=== PATIENT | female | born 1965 | race Hispanic/Latino ===

== ENCOUNTER 2017-12-17 16:00 | Observation (INO) | payer BC, SELFPAY ==
[2017-12-17 17:13] LABS: Absolute Lymphocytes (CBC) 2.2 K/uL (0.7-4.9); Absolute Monocytes 0.5 K/uL (0.1-1.3); Absolute Neutrophil 5.2 K/uL (1.8-8.0); Basophils % 0.9 % (0-1.3); Eosinophils % 1.3 % (0-4.4); MCV 94.6 fL (80-100); MPV 8.5 fL (7.6-11.3); Monocytes % 6.2 % (3.3-12.3); RBC Red Blood Cell Count 4.23 M/uL (3.86-4.86)
--- NOTE | 2017-12-17 17:18 | RAD REPORT ---
EXAM DESCRIPTION: CT - Head Brain Wo Cont - 12/17/2017 5:00 pm CLINICAL HISTORY: Dizziness and confusion COMPARISON: None. TECHNIQUE: Computed axial tomography of the head was obtained. IV contrast was not requested. All CT scans are performed using dose optimization technique as appropriate and may include automated exposure control or mA/KV adjustment according to patient size. FINDINGS: An intracranial bleed is not seen . The ventricles are normal in caliber. No extra-axial fluid collection is noted. Fluid within the sinuses/ mastoids is not seen. IMPRESSION: No acute intracranial abnormality is seen. If patient's symptoms persist MRI of the bra in would be recommended.
[2017-12-17 17:20] LABS: Protime INR 1.03
[2017-12-17] MEDS ORDERED: ACETAMINOPHEN 500 MG TAB ONE (17:24)
[2017-12-17 17:34] LABS: ALT/SGPT 40 U/L (12-78); AST/SGOT 24 U/L (15-37); Albumin 3.9 g/dL (3.4-5.0); Alkaline Phosphatase 90 U/L (45-117); BUN Blood Urea Nitrogen 14 mg/dL (7-18); Bicarbonate 23 mmol/L (21-32); Bilirubin Direct 0.1 mg/dL (0-0.2); Bilirubin Total 0.5 mg/dL (0.2-1.0); Glucose Level 94 mg/dL (74-106); NT PRO-BNP 28 pg/mL (<125); Potassium 3.6 mmol/L (3.5-5.1); Protein, Total 7.7 g/dL (6.4-8.2); Sodium Level 141 mmol/L (136-145); Troponin (Emerg Dept Use Only) < 0.02 ng/mL (0.0-0.045)
[2017-12-17 17:43] LABS: Thyroid Stimulating Hormone 0.406 uIU/mL (0.360-3.740)
--- NOTE | 2017-12-17 17:47 | ER ---
Nurse's Notes [facility] Name: Yaz Dunham Age: 52 yrs Sex: Female : 1965 Arrival Date: 12/17/2017 Time: 16:02 Bed 8 Private MD: Diagnosis: Altered mental status, unspecified;Chest pain, unspecified Presentation: 12/17 16:05 Presenting complaint: EMS states: Chestpain that began around 1530 today, became weak sg and felt faint and the pt son was able to help her sit down on the ground. pt family reports having blank stare and confused for EMS. EMS reports that when the pt arrived to the facility she reported " hey, where am I.". Transition of care: patient was not received from another setting of care. Onset of symptoms was December 17, 2017. Risk Assessment: Do you want to hurt yourself or someone else? Patient reports no desire to harm self or others. Initial Sepsis Screen: Does the patient meet any 2 criteria? No. Patient's initial sepsis screen is negative. Does the patient have a suspected source of infection? No. Patient's initial sepsis screen is negative. Care prior to arrival: Medication(s) given: ASA, 81 mg, x 4, Nitroglycerin, 0.4 mg SL x 1. 16:05 Method Of Arrival: EMS: [facility] sg 16:05 Acuity: DONATO 3 sg Historical: - Allergies: 16:15 No Known Allergies; sg - Home Meds: 16:05 trazodone 50 mg Oral tab [Active]; duloxetine oral oral [Active]; [place] Thyroid Oral sg [Active]; - PMHx: 16:15 Hypothyroidism; sg - Immunization history:: Adult Immunizations unknown. - Social history:: Smoking status: Patient/guardian denies using tobacco. - Ebola Screening: : Patient negative for fever greater than or equal to 101.5 degrees Fahrenheit, and additional compatible Ebola Virus Disease symptoms Patient denies exposure to infectious person Patient denies travel to an Ebola-affected area in the 21 days before illness onset No symptoms or risks identified at this time. Screenin:00 Abuse screen: Denies threats or abuse. Denies injuries from another. Nutritional sg screening: No deficits noted. Tuberculosis screening: No symptoms or risk factors identified. Never had TB. Fall Risk None identified. Assessment: 16:15 General: Appears in no apparent distress. comfortable, well groomed, well developed, sg well nourished, Behavior is calm, cooperative, appropriate for age. Pain: Denies pain. Neuro: Level of Consciousness is awake, alert, obeys commands, Oriented to person, place, time, situation, Fabrics And [employer] Cutter are equal bilaterally Moves all extremities. Full function Gait is steady, Speech is normal, Facial symmetry appears normal, Pupils are PERRLA. Cardiovascular: Capillary refill is brisk in bilateral fingers Patient's skin is warm and dry. 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 Respiratory: Airway is patent Respiratory effort is even, unlabored, Respiratory pattern is regular, symmetrical, Breath sounds are clear bilaterally. Denies cough, shortness of breath labored breathing, pain with respiration, pain with cough. GI: Abdomen is round non-distended, Bowel sounds present X 4 quads. Patient currently denies nausea, pain, vomiting. : No signs and/or symptoms were reported regarding the genitourinary system. EENT: No signs and/or symptoms were reported regarding the EENT system. Derm: Skin is pink, warm \\T\\ dry. Musculoskeletal: No signs and/or symptoms reported regarding the musculoskeletal system. 17:30 Reassessment: Patient appears in no apparent distress at this time. Patient and/or sg family updated on plan of care and expected duration. Pain level reassessed. Patient is alert, oriented x 3, equal unlabored respirations, skin warm/dry/pink. Patient states symptoms have not improved. 18:00 Reassessment: awaiting a bed for admission at this time, pt and pt family stated sg understanding. 18:20 Reassessment: Patient appears in no apparent distress at this time. Patient and/or sg family updated on plan of care and expected duration. Pain level reassessed. Patient is alert, oriented x 3, equal unlabored respirations, skin warm/dry/pink. reports headache has decreased in intensity at this time Patient states symptoms have not improved. 19:26 Reassessment: Patient is alert, oriented x 3, equal unlabored respirations, skin lp1 warm/dry/pink. Reassessment: Patient aware of pending admission. Pain: Complains of pain in head Pain does not radiate. Pain currently is 7 out of 10 on a pain scale. Quality of pain is described as aching, Pain began gradually. Neuro: Reports headache. Vital Signs: 16:05 BP 168 / 95; Pulse 67 MON; Resp 17 S; Temp 97.7; Pulse Ox 100% ; Pain 0/10; sg 19:27 BP 143 / 74; Pulse 54; Resp 13; Pulse Ox 100% on R/A; lp1 16:05 Sinus Rhythm sg ED Course: 16:02 Patient arrived in ED. sg 16:05 Arm band placed on. sg 16:06 Maverick Harris PA is PHCP. jr8 16:06 Ahsan Rajan MD is Attending Physician. jr8 16:11 Triage completed. sg 16:15 No provider procedures requiring assistance completed. Maintain EMS IV. Site clean \\T\\ sg dry. Gauge \\T\\ site: 20 G L hand. IV is patent, is intact. Patient maintains SpO2 saturation greater than 95% on room air. 16:27 EKG done, by ED staff, reviewed by Maverick QUICK. jb1 16:29 Shahriar Abbott RN is Primary Nurse. sg 16:59 CT completed. Patient moved to CT via wheelchair. Patient moved back from CT. bq 17:01 CT Head Brain wo Cont In Process Unspecified. EDMS 17:24 X-ray completed. Portable x-ray completed in exam room. Patient tolerated procedure ka well. 17:26 XRAY Chest (1 view) In Process Unspecified. EDMS 17:46 Manuel Gracia MD is Hospitalizing Provider. jr8 18:08 Inserted saline lock: 22 gauge in right antecubital area, using aseptic technique. IV iw discontinued, intact, bleeding controlled, No redness/swelling at site. Pressure dressing applied. 18:18 Basic Metabolic Panel Sent. eb 19:09 Patient has correct armband on for positive identification. manager er on. Pulse lp1 ox on. NIBP on. Administered Medications: 17:17 Drug: Tylenol 1000 mg Route: PO; iw Outcome: 17:46 Decision to Hospitalize by Provider. jr8 19:09 Condition: stable lp1 19:09 Instructed on the need for admit. 19:47 Admitted to Tele accompanied by tech, via wheelchair, room 402, with chart, Report lp1 called to BEATRIZ Dixon 20:16 Patient left the ED. lp1 Signatures: Dispatcher [employer] EDMS Diallo Curiel jb1 Shahriar Abbott RN RN sg Randa Patel Irene, RN RN iw Pena, Laura, RN RN lp1 Maverick Harris PA PA jr8 Juliet Ware Elizabeth eb Corrections: (The following items were deleted from the chart) 16:19 16:05 Care prior to arrival: None. juan luis mcknight
--- NOTE | 2017-12-17 17:47 | EDPHYS ---
Physician Documentation [facility] Name: Yaz Dunham Age: 52 yrs Sex: Female : 1965 Arrival Date: 12/17/2017 Time: 16:02 Bed 8 Private MD: ED Physician Ahsan Rajan HPI: 12/17 16:52 This 52 yrs old Female presents to ER via EMS with complaints of High Blood jr8 Pressure, Chest Pain > 30 y/o. 16:52 Patient stated that just after taking a shower she started to have chest pain, right jr8 arm pain, neck, pain. Stated that from that point on could not remember what happened. Came too in an ambulance confused. Family stated that patient was walking around confused saying her chest hurt. Patient could not recall anything else at the house other then initially having chest pain. Patient currently A\T\Ox4. Only complaint is headache now . 17:14 The patient has not experienced similar symptoms in the past. The patient has not jr8 recently seen a physician. Historical: - Allergies: 16:15 No Known Allergies; sg - Home Meds: 16:05 trazodone 50 mg Oral tab [Active]; duloxetine oral oral [Active]; [place] Thyroid Oral sg [Active]; - PMHx: 16:15 Hypothyroidism; sg - Immunization history:: Adult Immunizations unknown. - Social history:: Smoking status: Patient/guardian denies using tobacco. - Ebola Screening: : Patient negative for fever greater than or equal to 101.5 degrees Fahrenheit, and additional compatible Ebola Virus Disease symptoms Patient denies exposure to infectious person Patient denies travel to an Ebola-affected area in the 21 days before illness onset No symptoms or risks identified at this time. ROS: 17:14 Eyes: Negative for injury, pain, redness, and discharge, ENT: Negative for injury, jr8 pain, and discharge, Neck: Negative for injury, pain, and swelling, Respiratory: Negative for shortness of breath, cough, wheezing, and pleuritic chest pain, Abdomen/GI: Negative for abdominal pain, nausea, vomiting, diarrhea, and constipation, Back: Negative for injury and pain, MS/Extremity: Negative for injury and deformity, Skin: Negative for injury, rash, and discoloration. 17:14 Cardiovascular: Positive for chest pain, palpitations, Negative for edema, orthopnea. 17:14 Neuro: Positive for altered mental status, headache. Exam: 17:14 Eyes: Pupils equal round and reactive to light, extra-ocular motions intact. Lids and jr8 lashes normal. Conjunctiva and sclera are non-icteric and not injected. Cornea within normal limits. Periorbital areas with no swelling, redness, or edema. ENT: Nares patent. No nasal discharge, no septal abnormalities noted. Tympanic membranes are normal and external auditory canals are clear. Oropharynx with no redness, swelling, or masses, exudates, or evidence of obstruction, uvula midline. Mucous membranes moist. Neck: Trachea midline, no thyromegaly or masses palpated, and no cervical lymphadenopathy. Supple, full range of motion without nuchal rigidity, or vertebral point tenderness. No Meningismus. Cardiovascular: Regular rate and rhythm with a normal S1 and S2. No gallops, murmurs, or rubs. Normal PMI, no JVD. No pulse deficits. Respiratory: Lungs have equal breath sounds bilaterally, clear to auscultation and percussion. No rales, rhonchi or wheezes noted. No increased work of breathing, no retractions or nasal flaring. Abdomen/GI: Soft, non-tender, with normal bowel sounds. No distension or tympany. No guarding or rebound. No evidence of tenderness throughout. Back: No spinal tenderness. No costovertebral tenderness. Full range of motion. Skin: Warm, dry with normal turgor. Normal color with no rashes, no lesions, and no evidence of cellulitis. MS/ Extremity: Pulses equal, no cyanosis. Neurovascular intact. Full, normal range of motion. Neuro: Awake and alert, GCS 15, oriented to person, place, time, and situation. Cranial nerves II-XII grossly intact. Motor strength 5/5 in all extremities. Sensory grossly intact. Cerebellar exam normal. Normal gait. Vital Signs: 16:05 BP 168 / 95; Pulse 67 MON; Resp 17 S; Temp 97.7; Pulse Ox 100% ; Pain 0/10; sg 19:27 BP 143 / 74; Pulse 54; Resp 13; Pulse Ox 100% on R/A; lp1 16:05 Sinus Rhythm MDM: 16:06 Patient medically screened. [facility] 17:45 Data reviewed: vital signs, nurses notes, lab test result(s), EKG, radiologic studies, [facility] CT scan, plain films. Data interpreted: Pulse oximetry: on room air is 100 %. Interpretation: normal. Counseling: I had a detailed discussion with the patient and/or guardian regarding: the historical points, exam findings, and any diagnostic results supporting the discharge/admit diagnosis, lab results, radiology results, the need for further work-up and treatment in the hospital. Physician consultation: Manuel Gracia MD was called at 17:45, was contacted at 17:45, regarding admission, to the telemetry unit. consult, patient's condition, and will see patient. 12/17 16:27 Order name: Basic Metabolic Panel 12/17 16:27 Order name: CBC with Diff; Complete Time: 17:41 12/17 16:27 Order name: LFT's; Complete Time: 17: 12/17 16:27 Order name: Magnesium; Complete Time: 17:41 12/17 16:27 Order name: NT PRO-BNP; Complete Time: 17:41 12/17 16:27 Order name: PT-INR; Complete Time: 17:41 12/17 16:27 Order name: Troponin (emerg Dept Use Only); Complete Time: 17:41 12/17 16:27 Order name: XRAY Chest (1 view); Complete Time: 16:01 12/17 16:27 Order name: EKG; Complete Time: 16:27 12/17 16:27 Order name: Basic Metabolic Panel; Complete Time: 17:41 [facility] 12/17 16:47 Order name: TSH; Complete Time: 17:45 12/17 16:47 Order name: T4 Free; Complete Time: 17:45 12/17 16:47 Order name: CT Head Brain wo Cont; Complete Time: 17:41 12/17 16:27 Order name: Cardiac monitoring; Complete Time: 16:27 12/17 16:27 Order name: EKG - Nurse/Tech; Complete Time: 16:27 12/17 16:27 Order name: IV Saline Lock; Complete Time: 16:48 12/17 16:27 Order name: Labs collected and sent; Complete Time: 16:48 12/17 16:27 Order name: O2 Per Protocol; Complete Time: 16:27 jr8 12/17 16:27 Order name: O2 Sat Monitoring; Complete Time: 16:27 8 Administered Medications: 17:17 Drug: Tylenol 1000 mg Route: PO; Disposition: 12/18 11:50 Co-signature as Attending Physician, Ahsan Rajan MD. Disposition: 12/17/17 17:46 Hospitalization ordered by Manuel Gracia for Observation. Preliminary diagnosis are Altered mental status, unspecified, Chest pain, unspecified. - Bed requested for Telemetry/MedSurg (observation). - Status is Observation. lp1 - Condition is Stable. - Problem is new. - Symptoms have improved. UTI on Admission? No Signatures: Dispatcher [employer] Germania Carrizales RN BEATRIZ Shahriar Abbott, RN BEATRIZ Sandrine Velazquez RN RN Jenna Turcios RN RN lp1 Maverick Harris, PA PA [facility] Ahsan Rajan MD MD Corrections: (The following items were deleted from the chart) 12/17 17:40 16:52 . jr8 jr8 18:51 17:46 Hospitalization Ordered by Manuel Gracia MD for Observation. Preliminary dw diagnosis is Altered mental status, unspecified; Chest pain, unspecified. Bed requested for Telemetry/MedSurg (observation). Status is Observation. Condition is Stable. Problem is new. Symptoms have improved. UTI on Admission? No. jr8 20:16 18:51 12/17/2017 17:46 Hospitalization Ordered by Manuel Gracia MD for Observation. lp1 Preliminary diagnosis is Altered mental status, unspecified; Chest pain, unspecified. Bed requested for Telemetry/MedSurg (observation). Status is Observation. Condition is Stable. Problem is new. Symptoms have improved. UTI on Admission? No. dw
[2017-12-17] MEDS ORDERED: ACETAMINOPHEN 500 MG TAB PO PRN (18:23)
[2017-12-17] MEDS ORDERED: ALPRAZOLAM 0.25 MG TABLET PO PRN (18:23)
--- NOTE | 2017-12-17 18:34 | RAD REPORT ---
EXAM DESCRIPTION: Marlo Single View12/17/2017 5:26 pm CLINICAL HISTORY: Chest pain COMPARISON: none FINDINGS: The lungs appear clear of acute infiltrate. The heart is normal size IMPRESSION: No acute abnormalities displayed
[2017-12-17] MEDS ORDERED: ALPRAZOLAM 0.25 MG TABLET ONE (19:52)
[2017-12-17] MEDS: ENOXAPARIN 40 MG/0.4 ML SQ SCH (20:00)
--- NOTE | 2017-12-18 07:25 | P.HP ---
Certification for Inpatient Patient admitted to: Observation With expected LOS: <2 Midnights Patient will require the following post-hospital care: None Practitioner: I am a practitioner with admitting privileges, knowledge of patient current condition, hospital course, and medical plan of care. Services: Services provided to patient in accordance with Admission requirements found in Title 42 Section 412.3 of the Code of Federal Regulations Patient History Date of Service: 12/17/17 Reason for admission: Syncopal event/chest pain rule out acute coronary syndrome History of Present Illness: Patient is a 52-year-old female came to the hospital after passing out. She was at home with her son and suddenly felt some chest tightness. She called out to her son who was playing video games near her. He apparently caught her and laid her down on the floor. She was unresponsive. EMS came out to the house and they assessed her. She finally started coming around while she was in the ambulance. She said by the time she got into the ER she started feeling more like herself. She still having some chest discomfort. She denies having heart problems. She was told by her neurologist that she was having some spinal cord issues and may need further evaluation. She is feeling much better. Her initial troponins and EKG did not reveal any abnormalities. She came into the hospital for further evaluation. Allergies No Known Allergies Allergy (Unverified 12/17/17 19:36) Home Medications: Atorvastatin Calcium 20 mg PO DAILY 12/17/17 Duloxetine [Cymbalta *] 30 mg PO DAILY 12/17/17 Copen-3 Fatty Acids/Fish Oil [Fish Oil 1,000 mg Capsule] 1 each PO DAILY Thyroid,Pork [[place] Thyroid] 3 tab PO DAILY 12/17/17 Trazodone HCl 50 mg PO BEDTIME 12/17/17 Zolpidem Tartrate 10 mg PO BEDTIME 12/17/17 - Past Medical/Surgical History Has patient received pneumonia vaccine in the past: No -: hypothyroidism -: chronic back pain -: bbl - Family History Father Family History: Reviewed- Non-Contributory - Social History Smoking Status: Never smoker Alcohol use: No CD- Drugs: No Place of Residence: Home Review of Systems 10-point ROS is otherwise unremarkable Physical Examination - Vital Signs Temperature: 98.8 F Blood Pressure: 102/58 Pulse: 58 Respirations: 18 Pulse Ox (%): 96 - Physical Exam General: Alert, In no apparent distress, Oriented x3 HEENT: Atraumatic, PERRLA, Mucous membr. moist/pink, EOMI, Sclerae nonicteric Neck: Supple, 2+ carotid pulse no bruit, No LAD, Without JVD or thyroid abnormality Respiratory: Clear to auscultation bilaterally, Normal air movement Cardiovascular: Regular rate/rhythm, Normal S1 S2 Gastrointestinal: Normal bowel sounds, Soft and benign, Non-distended, No tenderness Musculoskeletal: No clubbing, No swelling, No tenderness Integumentary: No rashes Neurological: Normal gait, Normal speech, Normal strength at 5/5 x4 extr, Normal tone, Sensation intact, Cranial nerves 3-12 intact, Normal affect Lymphatics: No axilla or inguinal lymphadenopathy - Studies Laboratory Data (last 24 hrs) 12/17/17 16:50: PT 12.1, INR 1.03 12/17/17 16:50: WBC 8.1, Hgb 14.0, Hct 40.0, Plt Count 219 12/17/17 16:50: Sodium 141, Potassium 3.6, BUN 14, Creatinine 0.70, Glucose 94, Magnesium 2.0, Total Bilirubin 0.5, AST 24, ALT 40, Alkaline Phosphatase 90 Assessment & Plan - Problems (Diagnosis) (1) Chest pain, rule out acute myocardial infarction Current Visit: Yes Status: Acute (2) Syncope Current Visit: Yes Status: Acute - Plan 1. Serial troponins and EKG 2. Cardiology consultation 3. Echocardiogram and additional diagnostic testing as needed- 4. Anti-platelet therapy, anti coagulation, beta-genie, statin, and O2 as needed 5. IV morphine for pain 6. Neurologic follow-up. She does have a spinal cord issue however she does not have any significant neuropathy at this time. She is following up with Dr. Yo which she will need to continue to do as an outpatient. - Advance Directives Does patient have a Living Will: No Does patient have a Durable POA for Healthcare: No - Code Status/Comfort Care Code Status Assessed: Yes Code Status: Full Code Critical Care: No Time Spent Managing PTS Care (In Minutes): 50
[2017-12-18] MEDS: DOCOSAHEXANOIC AC/EPA 1000 MG PO SCH (09:03)
[2017-12-18] MEDS: DULOXETINE 30 MG CAP PO SCH (09:03)
[2017-12-18] MEDS: ASPIRIN EC 81 MG TAB PO SCH (09:04)
[2017-12-18] MEDS: HYDROCODONE/APAP 5/325 MG TAB PO PRN ×3 (10:42→21:06)
--- NOTE | 2017-12-18 14:06 | P.PN ---
Subjective Date of Service: 12/18/17 (Hospitalist note) Chief Complaint: Back pain with syncopal attack Patient is 52 years of age admitted with pain in the back felt dizzy has some loss of conscious that she has been evaluated for back pain as seeing a physician [place] and and was prescribed muscle relaxants steroids with no relief patient had a transient blacked out denies any chest pain for prior medical history she was scheduled to see a neurologist still complaining of neck discomfort Review of Systems Unremarkable Physical Examination - Vital Signs Temperature: 97.9 F Blood Pressure: 124/69 Pulse: 70 Respirations: 18 Pulse Ox (%): 97 - Physical Exam General: Alert, Oriented x3 HEENT: Atraumatic Neck: Supple Respiratory: Clear to auscultation bilaterally, Friction rub Cardiovascular: No edema, Regular rate/rhythm Gastrointestinal: Normal bowel sounds, Soft and benign Neurological: Normal speech, Normal strength at 5/5 x4 extr, Normal tone, Cranial nerves 3-12 intact - Studies Laboratory Data (last 24 hrs) 12/17/17 16:50: PT 12.1, INR 1.03 12/17/17 16:50: WBC 8.1, Hgb 14.0, Hct 40.0, Plt Count 219 12/17/17 16:50: Sodium 141, Potassium 3.6, BUN 14, Creatinine 0.70, Glucose 94, Magnesium 2.0, Total Bilirubin 0.5, AST 24, ALT 40, Alkaline Phosphatase 90 Assessment & Plan - Problems (Diagnosis) (1) Back pain Current Visit: Yes Status: Acute Plan: Patient is 52 years of age admitted with a syncopal attack complaining of severe back pain there is no neurological deficit was seen by a physician in [place] and was prescribed steroids muscle relaxants with no relief and was scheduled to see a neurologist here in town laboratory data is unremarkable patient's chest x-rays clear recommend an MRI Qualifiers: Back pain location: back pain in other location Chronicity: acute Qualified Code(s): M54.9 - Dorsalgia, unspecified
[2017-12-18] MEDS: ENOXAPARIN 40 MG/0.4 ML SQ SCH (16:23)
--- NOTE | 2017-12-18 17:04 | RAD REPORT ---
EXAM DESCRIPTION: RAD - Thoracic Spine Ap/Lat - 12/18/2017 4:44 pm CLINICAL HISTORY: Back pain, neck pain COMPARISON: None. FINDINGS: AP & lateral views of the thoracic spine were obtained. Thoracic bodies are normal in heig ht and alignment. There are no acute or destructive bony processes seen. No paraspinal masses are antonia ntified. Minimal endplate spurs seen in the midthoracic spine. No disc space narrowing. IMPRESSION: Negative thoracic spine examination for acute or significant finding.
--- NOTE | 2017-12-18 17:04 | RAD REPORT ---
EXAM DESCRIPTION: RAD - C Spine Ap/Lat - 12/18/2017 4:44 pm CLINICAL HISTORY: Neck pain, back pain COMPARISON: None. FINDINGS: Cervical bodies are normal in height and alignment. No fracture or acute bony process seen . No disc space narrowing. Minimal anterior endplate spurring at C5-6 and inferior endplate C6. There is no prevertebral soft tissue thickening or other suspicious soft tissue finding. IMPRESSION: Negative cervical spine examination for acute or significant finding.
[2017-12-18] MEDS: ATORVASTATIN 20 MG TAB PO SCH (21:06)
[2017-12-18] MEDS ORDERED: DEXAMETHASONE 10 MG/ML VIAL IV ONE (22:35)
[2017-12-18] MEDS: ZOLPIDEM TARTRATE 10 MG TABLET PO SCH (22:39)
[2017-12-18] MEDS: TRAZODONE 50 MG TABLET PO SCH (22:39)
[2017-12-18] MEDS ORDERED: DEXAMETHASONE 4 MG/ML VIAL ONE (23:01)
[2017-12-19] MEDS: HYDROCODONE/APAP 5/325 MG TAB PO PRN ×5 (05:10→21:31)
[2017-12-19] MEDS: THYROID 30 MG TAB PO SCH (05:11)
--- NOTE | 2017-12-19 07:06 | EKG ---
Test Date: 2017-12-17 Test Time: 16:11:36 Ball Fringe Machine Operator: POLO MEASUREMENT RESULTS: Intervals: Rate: 64 CA: 158 QRSD: 84 QT: 410 QTc: 422 [place]: P: 32 CA: 158 QRS: 23 T: 58 INTERPRETIVE STATEMENTS: Normal sinus rhythm Low voltage QRS Borderline ECG Compared to ECG 12/02/2005 01:00:45 Low QRS voltage now present Electronically Signed On 12-19-17 07:03:45 VENEER LATHE OPERATOR by Daryn Peters
[2017-12-19] MEDS ORDERED: LORazepam 2 MG/ML VIAL IV ONE (08:07)
[2017-12-19] MEDS: DOCOSAHEXANOIC AC/EPA 1000 MG PO SCH (09:31)
[2017-12-19] MEDS: DULOXETINE 30 MG CAP PO SCH (09:31)
[2017-12-19] MEDS: ASPIRIN EC 81 MG TAB PO SCH (09:31)
--- NOTE | 2017-12-19 09:50 | RAD REPORT ---
EXAM DESCRIPTION: MRI - C Spine Wo Cont - 12/19/2017 9:20 am CLINICAL HISTORY: Neck pain, radiculopathy COMPARISON: None. TECHNIQUE: Sagittal T1-weighted, T2-weighted and T2-STIR sequences were obtained as well as T2 medic sequence. Examination was performed without contrast. Patient was unknowingly claustrophobic and could not comp lete the examination with contrast. FINDINGS: Cervical bodies are normal in height. Patient has a very minimal retrolisthesis of C5 on C 6. No suspicious marrow edema or marrow replacing process. No paraspinal mass. Cerebellar tonsils and mid-line skull base show no suspicious finding. No significant finding at the C1 and C2 levels. C2-3 level: Minimal midline disc bulge and thickening of the posterior longitudinal ligament partiall y attenuates the anterior subarachnoid space. No contact or flattening of the cord. Midline canal storm meter is reduced to 10 mm. C3-4 level: Minimal bulge and longitudinal ligament thickening in the midline attenuates the anterior subarachnoid space. Anterior contour the cord is flattened. Midline canal diameter is 10 mm. No fora octavio encroachment. C4-5 level: Midline and left-sided disc bulge attenuates the anterior subarachnoid space. There is a minimal flattening of the anterior contour the cord with a 10 millimeter midline canal diameter. No f oraminal encroachment. C5-6 level: Prominent central canal disc bulge attenuates the anterior subarachnoid space. There is a more significant flattening of the anterior cord contour. Canal is stenotic at 9 mm. Mild left jewel inal encroachment present from disc bulge and uncovertebral joint hypertrophy. C6-7 level: Midline and left-side prominent disc bulge attenuates the anterior subarachnoid space. Mi dline canal diameter is 10 mm. Mild posterior ligamentous thickening seen. Left foraminal encroachmen t is present from uncovertebral joint hypertrophy and foraminal disc bulge. C7-T1 level: No significant findings. No cord signal abnormality. No expansile change. IMPRESSION: Cervical spondylosis changes are present seen as mild to moderate disc bulge changes. Disc and endplate degenerative changes seen on the study result in mild 9 millimeter spinal stenosis at C5-6. Multiple levels are borderline stenotic at 10 mm with anterior cord flattening at multiple l evels. No cord signal abnormality. Left foraminal encroachment at C6-7 is significant with little fat remaining in the foramen.
--- NOTE | 2017-12-19 09:53 | RAD REPORT ---
EXAM DESCRIPTION: MRI - Thoracic Spine Wo Contr - 12/19/2017 9:39 am CLINICAL HISTORY: Back pain radiating into the right lower extremity COMPARISON: None. TECHNIQUE: Sagittal T1 weighted, T2 weighted and T2 STIR weighted sequences were obtained. Axial T2 weighted images were obtained through each disc level. Due to claustrophobia, patient was unable to tolerate the contrast portion of the examination. FINDINGS: Thoracic bodies are normal in height and alignment. No marrow edema or marrow replacing pr ocess. No paraspinal mass identifiable. No disc desiccation or loss in disc height. No disc herniation or disc bulge changes identifiable. Hy pointense signal posterior left central canal at T4-5 is believed to be floor artifact. No significan t facet abnormality in this region or elsewhere in the thoracic spine. Thoracic cord shows no focal narrowing, expansion or signal abnormality. IMPRESSION: MRI thoracic spine examination shows no significant or suspicious finding.
--- NOTE | 2017-12-19 13:34 | P.PN ---
Subjective Date of Service: 12/19/17 Chief Complaint: Back pain with syncopal attack Pt seen and examined at bedside with RN. Chart Reviewed. Case DW with Cardiology. Pt currently Awaiting MRI of the cervical and thoracic Spine. Review of Systems 10-point ROS is otherwise unremarkable Physical Examination - Vital Signs Temperature: 98.5 F Blood Pressure: 117/57 Pulse: 76 Respirations: 18 Pulse Ox (%): 98 - Physical Exam General: Alert, In no apparent distress HEENT: Atraumatic, PERRLA, EOMI Neck: Supple, JVD not distended Respiratory: Clear to auscultation bilaterally, Normal air movement Cardiovascular: Regular rate/rhythm, Normal S1 S2 Gastrointestinal: Normal bowel sounds, No tenderness Musculoskeletal: No tenderness Integumentary: No rashes Neurological: Normal speech, Normal tone, Normal affect Lymphatics: No axilla or inguinal lymphadenopathy - Studies Medications List Reviewed: Yes Assessment And Plan - Current Problems (Diagnosis) (1) Syncope Onset Date: 12/19/17 Current Visit: Yes Status: Acute Plan: Most Likely Vasovagal In nature due to Pain -Currently doing well -MRI pending -ECHO pending -PT ambulating without any problems Qualifiers: Syncope type: vasovagal syncope Qualified Code(s): R55 - Syncope and collapse (2) Chest pain, rule out acute myocardial infarction Onset Date: 12/19/17 Current Visit: Yes Status: Acute Plan: Chest Pain R.O ACS -ECHO pending -Troponin x 2 negative -EKG WNL (3) Back pain Onset Date: 12/19/17 Current Visit: Yes Status: Acute Plan: MRI Of the spine and thoraic Pending Qualifiers: Back pain location: back pain in other location Chronicity: acute Qualified Code(s): M54.9 - Dorsalgia, unspecified Discharge Plan: Home Plan to discharge in: 24 Hours - Code Status/Comfort Care Code Status Assessed: Yes Critical Care: No
--- NOTE | 2017-12-19 16:03 | ECHO ---
HEIGHT: 5 ft 0 in WEIGHT: 159 lb 1.6 oz DATE OF STUDY: 12/19/[address]: Manuel Gracia MD 2-DIMENSIONAL: YES M.MODE: YES DOPPLER: BRAYAN COLOR FLOW: YES TDS: PORTABLE: DEFINITY: BUBBLE STUDY: DIAGNOSIS: CHEST PAIN R/O ACS CARDIAC HISTORY: CATHERIZATION: NO SURGERY: NO PROSTHETIC VALVE: NO PACEMAKER: NO MEASUREMENTS (cm) DIASTOLIC (NORMALS) SYSTOLIC (NORMALS) IVSd 1.2 (0.6-1.2) LA Diam 3.4 (1.9-4.0) LVEF 67% LVIDd 4.4 (3.5-5.7) LVIDs 2.7 (2.0-3.5) %FS 37% LVPWd 1.2 (0.6-1.2) Ao Diam 2.5 (2.0-3.7) 2 DIMENSIONAL ASSESSMENT: RIGHT ATRIUM: NORMAL LEFT ATRIUM: NORMAL RIGHT VENTRICLE: NORMAL LEFT VENTRICLE: NORMAL TRICUSPID VALVE: NORMAL MITRAL VALVE: NORMAL PULMONIC VALVE: NORMAL AORTIC VALVE: NORMAL PERICARDIAL EFFUSION: NONE AORTIC ROOT: NORMAL LEFT VENTRICULAR WALL MOTION: NORMAL DOPPLER/COLOR FLOW: NORMAL COMMENTS: NORMAL TWO DIMENSIONAL ECHOCARDIOGRAM WITH DOPPLER. TECHNOLOGIST: PRABHJOT BAKER
[2017-12-19] MEDS: ENOXAPARIN 40 MG/0.4 ML SQ SCH (16:23)
[2017-12-19] MEDS: ATORVASTATIN 20 MG TAB PO SCH (21:31)
[2017-12-19] MEDS: TRAZODONE 50 MG TABLET PO SCH (21:33)
[2017-12-19] MEDS: ZOLPIDEM TARTRATE 10 MG TABLET PO SCH (23:01)
[2017-12-20] MEDS: THYROID 30 MG TAB PO SCH (05:21)
[2017-12-20] MEDS: HYDROCODONE/APAP 5/325 MG TAB PO PRN ×3 (05:22→13:02)
[2017-12-20] MEDS: DOCOSAHEXANOIC AC/EPA 1000 MG PO SCH (08:52)
[2017-12-20] MEDS: DULOXETINE 30 MG CAP PO SCH (08:52)
[2017-12-20] MEDS: ASPIRIN EC 81 MG TAB PO SCH (08:52)
--- NOTE | 2017-12-20 15:26 | P.DS ---
Admission Date: 12/17/17 Discharge Date: 12/20/17 Disposition: ROUTINE DISCHARGE Discharge Condition: GOOD Reason for Admission: Back pain with syncopal attack - Problems (1) Syncope Onset Date: 12/19/17 Current Visit: Yes Status: Acute Qualifiers: Syncope type: vasovagal syncope Qualified Code(s): R55 - Syncope and collapse (2) Chest pain, rule out acute myocardial infarction Onset Date: 12/19/17 Current Visit: Yes Status: Acute (3) Back pain Onset Date: 12/19/17 Current Visit: Yes Status: Acute Qualifiers: Back pain location: back pain in other location Chronicity: acute Qualified Code(s): M54.9 - Dorsalgia, unspecified Brief History of Present Illness: Patient is a 52-year-old female came to the hospital after passing out. She was at home with her son and suddenly felt some chest tightness. She called out to her son who was playing video games near her. He apparently caught her and laid her down on the floor. She was unresponsive. EMS came out to the house and they assessed her. She finally started coming around while she was in the ambulance. She said by the time she got into the ER she started feeling more like herself. She still having some chest discomfort. She denies having heart problems. She was told by her neurologist that she was having some spinal cord issues and may need further evaluation. She is feeling much better. Her initial troponins and EKG did not reveal any abnormalities. She came into the hospital for further evaluation. Hospital Course: Overall during the hospital stay patient remained stable The patient was admitted to the hospital initially for syncopal episode after having chest discomfort. Patient had cardiac workup done here in the hospital which was within normal limits. Patient also had an echocardiogram done here in the hospital for syncopal episode which was also within normal limits. Patient syncopal episode was most likely secondary to vasovagal symptom from her back pain. Patient had MRI done of the cervical spine along with thoracic pain and. Which was consistent with spondylosis and significant narrowing which might be causing her to have nerve pain. Patient was educated extensively on the results of her MRI and was asked to follow up with her physical therapy outpatient. Patient demonstrated understanding and once was able to tolerate her diet and ambulate okay was discharged home under stable condition. Vital Signs/Physical Exam: Temp Pulse Resp BP Pulse Ox 97.8 F 60 18 122/70 97 12/20/17 12:00 12/20/17 12:00 12/20/17 12:00 12/20/17 12:00 12/20/17 12:00 General: Alert, In no apparent distress HEENT: Atraumatic, PERRLA, EOMI Neck: Supple, JVD not distended Respiratory: Clear to auscultation bilaterally, Normal air movement Cardiovascular: Regular rate/rhythm, Normal S1 S2 Gastrointestinal: Normal bowel sounds, No tenderness Musculoskeletal: No tenderness Integumentary: No rashes Neurological: Normal speech, Normal tone, Normal affect Lymphatics: No axilla or inguinal lymphadenopathy Laboratory Data at Discharge: WBC 8.1 K/uL (4.3-10.9) 12/17/17 16:50 Hgb 14.0 g/dL (12.0-15.0) 12/17/17 16:50 Hct 40.0 % (36.0-45.0) 12/17/17 16:50 Plt Count 219 K/uL (152-406) 12/17/17 16:50 PT 12.1 SECONDS (9.5-12.5) 12/17/17 16:50 INR 1.03 12/17/17 16:50 Sodium 141 mmol/L (136-145) 12/17/17 16:50 Potassium 3.6 mmol/L (3.5-5.1) 12/17/17 16:50 BUN 14 mg/dL (7-18) 12/17/17 16:50 Creatinine 0.70 mg/dL (0.55-1.3) 12/17/17 16:50 Glucose 94 mg/dL (74-106) 12/17/17 16:50 Magnesium 2.0 mg/dL (1.8-2.4) 12/17/17 16:50 Total Bilirubin 0.5 mg/dL (0.2-1.0) 12/17/17 16:50 AST 24 U/L (15-37) 12/17/17 16:50 ALT 40 U/L (12-78) 12/17/17 16:50 Alkaline Phosphatase 90 U/L (45-117) 12/17/17 16:50 Troponin I < 0.02 ng/mL (0.0-0.045) 12/18/17 06:45 Triglycerides 264 mg/dL (<150) H 12/18/17 06:45 Cholesterol 140 mg/dL (<200) 12/18/17 06:45 HDL Cholesterol 40 mg/dL (40-60) 12/18/17 06:45 Cholesterol/HDL Ratio 3.50 12/18/17 06:45 Home Medications: Atorvastatin Calcium 20 mg PO DAILY 12/17/17 Duloxetine [Cymbalta *] 30 mg PO DAILY 12/17/17 [place]-3 Fatty Acids/Fish Oil [Fish Oil 1,000 mg Capsule] 1 each PO DAILY Thyroid,Pork [[place] Thyroid] 3 tab PO DAILY 12/17/17 Trazodone HCl 50 mg PO BEDTIME 12/17/17 Zolpidem Tartrate 10 mg PO BEDTIME 12/17/17 Patient Discharge Instructions: Please f.u with Dr ruiz for your neck and Back pain. No New medication. You are referred to PT for therapy for your back and neck pain Diet: Regular Activity: Ad iris Followup: Edu Ruiz MD [ASSOCIATE-ACTIVE - CAN ADMIT] -
== END 2017-12-20 15:53 | disposition home or self-care (01) ==
LOC: ER 16:00 → ERHOLD 17:47 → 4TH 19:44
PROVIDERS: ADMIT Hospitalist; ATTEND Hospitalist
DX: R55 Syncope and collapse (principal); R07.9 Chest pain, unspecified; M54.9 Dorsalgia, unspecified; M47.9 Spondylosis, unspecified; E03.9 Hypothyroidism, unspecified
CPT/HCPCS: 36415; 70450; 71045; 72040; 72070; 72141; 72146; 80048; 80061; 80076; 83735; 83880; 84439; 84443; 84484; 85025; 85610; 93005; 93306; 99285; G0378; J1100; J1650

== ENCOUNTER 2018-06-28 22:59 | Emergency (ER) | payer BC ==
--- NOTE | 2018-06-29 01:04 | EDPHYS ---
Physician Documentation [facility] Name: Yaz Dunham Age: 53 yrs Sex: Female : 1965 Arrival Date: 06/28/2018 Time: 23:01 Bed 16 Private MD: ED Physician Ahsan Rajan HPI: 06/29 00:10 This 53 yrs old Female presents to ER via Ambulatory with complaints of YEAST cp INFECTION. 00:10 The patient presents with vaginal pain. cp 00:10 Onset: The symptoms/episode began/occurred 3 day(s) ago. cp 00:10 Associated signs and symptoms: Pertinent negatives: cramping, dysuria, fever, vaginal cp bleeding, vaginal discharge. Severity of symptoms: in the emergency department the symptoms are unchanged, despite home interventions, use of vaginal yeast cream. The patient is sexually active, reportedly has a single partner. Patient reports concern for possible yeast infection due to redness and burning in vaginal area. Patient reports she has been prescribed Diflucan in the past for similar symptoms. Patient also concerned about possible STD as works out of town and she is concerned about him cheating. VP OF MARKETING: 06/28 23:14 LMP N/A - Post-menopause ed1 Historical: - Allergies: 23:14 No Known Allergies; ed1 - Home Meds: 23:14 [place] Thyroid Oral [Active]; trazodone 50 mg Oral tab [Active]; Ambien Oral [Active]; ed1 Latuda oral oral [Active]; duloxetine Oral [Active]; Sandwich-3 oral oral [Active]; - PMHx: 23:14 Hypothyroidism; Back Problems; ed1 - PSHx: 23:14 None; ed1 - Immunization history:: Adult Immunizations up to date. - Social history:: Smoking status: Patient/guardian denies using tobacco. - Ebola Screening: : Patient negative for fever greater than or equal to 101.5 degrees Fahrenheit, and additional compatible Ebola Virus Disease symptoms Patient denies exposure to infectious person Patient denies travel to an Ebola-affected area in the 21 days before illness onset No symptoms or risks identified at this time. ROS: 06/29 00:20 Constitutional: Negative for body aches, chills, fever, poor PO intake. cp 00:20 Eyes: Negative for injury, pain, redness, and discharge. cp 00:20 ENT: Negative for drainage from ear(s), ear pain, sore throat, difficulty swallowing, difficulty handling secretions. 00:20 Cardiovascular: Negative for chest pain. 00:20 Respiratory: Negative for cough, shortness of breath, wheezing. 00:20 Abdomen/GI: Negative for abdominal pain, nausea, vomiting, and diarrhea. 00:20 : Positive for burning and redness in vaginal area, Negative for urinary symptoms, pelvic pain, flank pain, difficulty urinating, vaginal bleeding, vaginal discharge. 00:20 Skin: Negative for rash. 00:20 All other systems are negative. Exam: 00:25 Constitutional: The patient appears in no acute distress, alert, awake, comfortable, cp non-toxic, well developed, well nourished. 00:25 Head/Face: Normocephalic, atraumatic. cp 00:25 Eyes: Periorbital structures: appear normal, Conjunctiva: normal, no exudate, no injection, Sclera: no appreciated abnormality, Lids and lashes: appear normal, bilaterally. 00:25 ENT: External ear(s): are unremarkable, Nose: is normal, Mouth: is normal, Posterior pharynx: Airway: no evidence of obstruction, patent. 00:25 Chest/axilla: Inspection: normal. 00:25 Cardiovascular: Rate: normal. 00:25 Respiratory: the patient does not display signs of respiratory distress, Respirations: normal, no use of accessory muscles, no retractions, no splinting, no tachypnea. 00:25 Abdomen/GI: Inspection: abdomen appears normal, Palpation: abdomen is soft and non-tender, in all quadrants, voluntary guarding, is not appreciated, involuntary guarding, is not appreciated. 00:25 Back: pain, is absent, ROM is normal. 00:25 : Pelvic Exam: The exam is refused by the patient/guardian. The risks and consequences are understood by the patient. Vital Signs: 06/28 23:14 BP 144 / 77; Pulse 76; Resp 16; Temp 97.2(TE); Pulse Ox 96% on R/A; Weight 68.04 kg; ed1 Height 5 ft. 0 in. (152.40 cm); Pain 10/10; 06/29 01:15 BP 131 / 69; Pulse 72; Resp 16; Temp 97.5; Pulse Ox 97% on R/A; aa1 06/28 23:14 Body Mass Index 29.29 (68.04 kg, 152.40 cm) ed1 MDM: 00:05 Patient medically screened. cp 01:00 Differential diagnosis: pelvic inflammatory disease, urinary tract infection, vaginosis.cp 01:03 Data reviewed: vital signs, nurses notes, and as a result, I will discharge patient. cp 01:03 Counseling: I had a detailed discussion with the patient and/or guardian regarding: the cp historical points, exam findings, and any diagnostic results supporting the discharge/admit diagnosis, the need for outpatient follow up, a family practitioner, to return to the emergency department if symptoms worsen or persist or if there are any questions or concerns that arise at home. Administered Medications: 01:15 Drug: Rocephin (cefTRIAXone) 250 mg Route: IM; Site: right gluteus; aa1 :21 Follow up: Response: No adverse reaction; Medication administered at discharge. aa1 01:15 Drug: Zithromax 1 grams Route: PO; aa1 :21 Follow up: Response: No adverse reaction; Medication administered at discharge. aa1 Disposition: 21:59 Co-signature as Attending Physician, Ahsan Rajan MD. Disposition: 06/29/18 01:04 Discharged to Home. Impression: Encounter for screening for infections with a predominantly sexual mode of transmission. - Condition is Stable. - Discharge Instructions: Sexually Transmitted Disease, Health Maintenance, Female. - Prescriptions for Diflucan 150 mg Oral Tablet - take 1 tablet by ORAL route one time As needed may repeat 2 days later if symptoms continue; 2 tablet. - Medication Reconciliation Form, Thank You Letter, Antibiotic Education, Prescription Opioid Use form. - Follow up: Private Physician; When: 1 - 2 days; Reason: Recheck today's complaints. - Problem is new. - Symptoms have improved. Signatures: Dispatcher [employer] EDMS Nay Silva RN RN aa1 Sofi Villagomez RN RN ed1 Andrey Suttno PA PA cp Starr, Gregory, MD MD Corrections: (The following items were deleted from the chart) 00:58 00:26 Pelvic Exam Setup ordered. cp cp : 01:04 06/29/2018 01:04 Discharged to Home. Impression: Encounter for screening for aa1 infections with a predominantly sexual mode of transmission. Condition is Stable. Forms are Medication Reconciliation Form, Thank You Letter, Antibiotic Education, Prescription Opioid Use. Follow up: Private Physician; When: 1 - 2 days; Reason: Recheck today's complaints. Problem is new. Symptoms have improved. cp
--- NOTE | 2018-06-29 01:04 | ER ---
Nurse's Notes [facility] Name: Yaz Dunham Age: 53 yrs Sex: Female : 1965 Arrival Date: 06/28/2018 Time: 23:01 Bed 16 Private MD: Diagnosis: Encounter for screening for infections with a predominantly sexual mode of transmission Presentation: 06/28 23:11 Presenting complaint: Patient states: I have a yeast infection and its getting worse. ed1 Transition of care: patient was not received from another setting of care. Onset of symptoms was June 25, 2018. Risk Assessment: Do you want to hurt yourself or someone else? Patient reports no desire to harm self or others. Initial Sepsis Screen: Does the patient meet any 2 criteria? No. Patient's initial sepsis screen is negative. Does the patient have a suspected source of infection? No. Patient's initial sepsis screen is negative. Care prior to arrival: None. 23:11 Method Of Arrival: Ambulatory ed1 23:11 Acuity: DONATO 5 ed1 Triage Assessment: 23:14 General: Appears in no apparent distress. Behavior is calm, cooperative. Pain: ed1 Complains of pain in vaginal opening Pain currently is 10 out of 10 on a pain scale. Quality of pain is described as burning. : Reports vaginal burning and redness. CONTROL CLERK REPAIRS: 23:14 LMP N/A - Post-menopause ed1 Historical: - Allergies: 23:14 No Known Allergies; ed1 - Home Meds: 23:14 [place] Thyroid Oral [Active]; trazodone 50 mg Oral tab [Active]; Ambien Oral [Active]; ed1 Latuda oral oral [Active]; duloxetine Oral [Active]; [place]-3 oral oral [Active]; - PMHx: 23:14 Hypothyroidism; Back Problems; ed1 - PSHx: 23:14 None; ed1 - Immunization history:: Adult Immunizations up to date. - Social history:: Smoking status: Patient/guardian denies using tobacco. - Ebola Screening: : Patient negative for fever greater than or equal to 101.5 degrees Fahrenheit, and additional compatible Ebola Virus Disease symptoms Patient denies exposure to infectious person Patient denies travel to an Ebola-affected area in the 21 days before illness onset No symptoms or risks identified at this time. Screenin:55 Abuse screen: Denies threats or abuse. Denies injuries from another. Abuse screen:. aa1 Nutritional screening: No deficits noted. Tuberculosis screening: No symptoms or risk factors identified. Fall Risk None identified. Assessment: 23:55 General: Appears in no apparent distress. comfortable, Behavior is calm, cooperative, aa1 appropriate for age. Pain: Denies pain. Neuro: Level of Consciousness is awake, alert, obeys commands, Oriented to person, place, time, situation, Gait is steady. Respiratory: Airway is patent Respiratory effort is even, unlabored, Respiratory pattern is regular, symmetrical. GI: No signs and/or symptoms were reported involving the gastrointestinal system. : Reports discharge, from vagina that is white. EENT: No signs and/or symptoms were reported regarding the EENT system. Derm: Skin is intact, is healthy with good turgor, Skin is pink, warm \T\ dry. Musculoskeletal: No signs and/or symptoms reported regarding the musculoskeletal system. 06/29 00:19 Reassessment: Patient appears in no apparent distress at this time. Patient is alert, aa1 oriented x 3, equal unlabored respirations, skin warm/dry/pink. Provider at bedside for assessment. 00:50 Reassessment: Patient appears in no apparent distress at this time. Patient and/or aa1 family updated on plan of care and expected duration. Pain level reassessed. Patient is alert, oriented x 3, equal unlabored respirations, skin warm/dry/pink. Pt reports she does not pelvic exam or STD testing and would like to opt for treatment only. 01:18 Reassessment: Patient appears in no apparent distress at this time. Patient is alert, aa1 oriented x 3, equal unlabored respirations, skin warm/dry/pink. Discussed d/c \T\ f/u instructions with pt; denies questions or concerns at this time. Ambulatory to lobby with steady gait. Vital Signs: 06/28 23:14 BP 144 / 77; Pulse 76; Resp 16; Temp 97.2(TE); Pulse Ox 96% on R/A; Weight 68.04 kg; ed1 Height 5 ft. 0 in. (152.40 cm); Pain 10/; 06/29 01:15 BP 131 / 69; Pulse 72; Resp 16; Temp 97.5; Pulse Ox 97% on R/A; aa1 05/22 23:14 Body Mass Index 29.29 (68.04 kg, 152.40 cm) ed1 ED Course: 06/28 23:01 Patient arrived in ED. es 23:13 Triage completed. ed1 23:14 Arm band placed on Patient placed in waiting room, Patient notified of wait time. ed1 23:48 Andrey Sutton PA is PHCP. cp 23:48 Ahsan Rajan MD is Attending Physician. cp 23:51 Nay Silva, RN is Primary Nurse. aa1 23:55 Patient has correct armband on for positive identification. Placed in gown. Bed in low aa1 position. Call light in reach. Pulse ox on. NIBP on. 06/29 01:18 No provider procedures requiring assistance completed. Patient did not have IV access aa1 during this emergency room visit. Administered Medications: 01:15 Drug: Rocephin (cefTRIAXone) 250 mg Route: IM; Site: right gluteus; aa1 01:21 Follow up: Response: No adverse reaction; Medication administered at discharge. aa1 01:15 Drug: Zithromax 1 grams Route: PO; aa1 01:21 Follow up: Response: No adverse reaction; Medication administered at discharge. aa1 Outcome: 01:04 Discharge ordered by . cp 01:18 Discharged to home ambulatory. aa1 01:18 Condition: good 01:18 Discharge instructions given to patient, Instructed on discharge instructions, follow up and referral plans. medication usage, Demonstrated understanding of instructions, follow-up care, medications, Prescriptions given X 1. 01:22 Patient left the ED. aa1 Signatures: Nay Silva, RN RN aa1 Linette Monk Erika RN RN ed1 Andrey Sutton PA PA cp
[2018-06-29] MEDS ORDERED: CEFTRIAXONE 250 MG/VIAL ONE (01:23)
[2018-06-29] MEDS ORDERED: AZITHROMYCIN 250 MG TAB ONE (01:23)
[2018-06-29] MEDS ORDERED: LIDOCAINE 1% MPF 2 ML AMPULE ONE (01:23)
== END 2018-06-29 01:22 | disposition home or self-care (01) ==
LOC: ER 22:59
DX: Z11.3 Encounter for screening for infections with a predominantly sexual mode of transmission (principal); E03.9 Hypothyroidism, unspecified
CPT/HCPCS: 96372; 99283; J0696; J2001